=== PATIENT | female | born 1950 | race Caucasian/White ===

== ENCOUNTER → 2017-04-17 | Outpatient (CLI) | payer OTHER | LOC: BMCIMAGING 12:16 | PROVIDERS: ATTEND Family Medicine | DX: J45.909 Unspecified asthma, uncomplicated (principal) ==

== ENCOUNTER → 2018-01-14 | Outpatient (CLI) | payer OTHER | LOC: BMCIMAGING 07:57 | PROVIDERS: ATTEND Internal Medicine | DX: R94.5 Abnormal results of liver function studies (principal); K76.0 Fatty (change of) liver, not elsewhere classified ==

== ENCOUNTER 2018-03-31 09:17 | Day surgery (SDC) | payer OTHER ==
[2018-03-31] MEDS ORDERED: NALOXONE HCL 0.4 MG/ML INJ IVP PRN (09:26)
[2018-03-31] MEDS ORDERED: FLUMAZENIL 0.5 MG/5 ML MDV IVP PRN (09:26)
[2018-03-31] MEDS ORDERED: fentaNYL 100 MCG/2 ML INJ IVP PRN (09:26)
[2018-03-31] MEDS ORDERED: MIDAZOLAM 2 MG/2 ML VIAL IVP PRN (09:26)
[2018-03-31] MEDS ORDERED: NS 1,000 ML IV SCH (09:30)
[2018-03-31] MEDS ORDERED: IOPAMIDOL (ISOVUE-300) 100 ML BTL ONE (10:15)
[2018-03-31 13:11] VITALS: BP 127/79
--- NOTE | 2018-03-31 13:11 | PDPROPOC ---
Sedation Plan of Care Sedation Plan of Care: vital signs stable, mental status noted, patient educated of risks, benefits, alternatives, patient can tolerate sedation ASA Classification: ASA 2 Planned drugs: fentanyl, midazolam Mallampati Score: Class 2 Mallampati Reference Image: Patient passed 3-3-2 rule?: Yes
--- NOTE | 2018-03-31 13:11 | PDHPUP ---
History & Physical Update H&P update statement: This history and physical update is based on an assessment of the patient which was completed after admission or registration (within 24 hours), but prior to the surgery/procedure. H&P update: H&P reviewed & patient examined, no change in patient's condition since H&P completed
[2018-03-31] MEDS ORDERED: ONDANSETRON 4 MG/2 ML VIAL IVP PRN (13:13)
[2018-03-31] MEDS ORDERED: OXYCODONE/APAP 5/325 TAB PO PRN (13:13)
--- NOTE | 2018-03-31 13:13 | PDCONSULT ---
[employer] Note: NEUROENDOVASCULAR no complaints, doing well AAOx3, speech fluent strength full, no drift sensation intact groin c/d/i without hematoma, distal pulses palpable s/p diagnostic angiogram, found left transverse sinus dAVF - flat for 3 hours - then d/c home - f/u in clinic in next few weeks [facility]
== END 2018-03-31 16:38 | disposition home or self-care (01) ==
LOC: FIMAGING 09:17
PROVIDERS: ATTEND Neurological Surgery
PROC: B31R1ZZ Fluoroscopy of Intracranial Arteries using Low Osmolar Contrast (ICD-10-PCS; principal; 2018-03-31)
DX: I67.1 Cerebral aneurysm, nonruptured (principal); H93.12 Tinnitus, left ear
CPT/HCPCS: 99152; C1769; C1894; C1760; J1644; J2250; J2310; J3010; Q9967

== ENCOUNTER 2018-05-24 10:38 | Inpatient (IN) | payer OTHER | END 2018-05-25 09:35 | disposition home or self-care (01) | LOC: FIMAGING 10:38 → F2N 18:22 ==